=== PATIENT | female | born 1945 | race Caucasian/White ===

== ENCOUNTER → 2024-09-19 10:07 | Outpatient (REF) | payer OTHER, SELFPAY | LOC: RCS 10:07 | PROVIDERS: ATTENDING PHYSICIAN Internal Medicine Cardiovascular Disease; FAMILY PHYSICIAN Family Medicine | DX: I34.0 Nonrheumatic mitral (valve) insufficiency (principal); I70.0 Atherosclerosis of aorta; I10 Essential (primary) hypertension | CPT/HCPCS: 93306 ==

== ENCOUNTER → 2024-12-05 08:20 | Outpatient (REF) | payer OTHER, SELFPAY | LOC: EMG 08:20 | PROVIDERS: ATTENDING PHYSICIAN Podiatrist Foot & Ankle Surgery; FAMILY PHYSICIAN Family Medicine | DX: G62.9 Polyneuropathy, unspecified (principal); E11.40 Type 2 diabetes mellitus with diabetic neuropathy, unspecified | CPT/HCPCS: 95886; 95911 ==

== ENCOUNTER 2025-01-25 06:14 | Day surgery (SDC) | payer OTHER, SELFPAY ==
[2025-01-25 08:28] LABS: Glucose - Point of Care 129 mg/dl (70-99)
== END 2025-01-25 10:46 | disposition home or self-care (01) ==
LOC: GI 06:14
PROVIDERS: ATTENDING PHYSICIAN Specialist
DX: Z12.11 Encounter for screening for malignant neoplasm of colon (principal); K57.30 Diverticulosis of large intestine without perforation or abscess without bleeding; R13.10 Dysphagia, unspecified; K22.2 Esophageal obstruction; Z86.0101 Personal history of adenomatous and serrated colon polyps
CPT/HCPCS: 43249; G0105; 82962

== ENCOUNTER 2025-03-20 23:05 | Emergency (ER) | payer OTHER, SELFPAY ==
[2025-03-20 23:08] VITALS: BP 128/99
--- NOTE | 2025-03-20 23:39 | ED.GENMED ---
History of Present Illness
<Mila Garcia MD, Resident - Last Filed: 03/21/25 00:32>
General
Chief Complaint: Eye Problems
Source: patient
Exam Limitations: none
Time Seen by Provider: 03/20/25 23:27
Nursing documentation reviewed up to this point in time: agreed with
History of Present Illness
History of Present Illness:
80yo F who presents with contact lens stuck in her R eye.
States that she was unable to get the contact out of her R eye today. It has only been in for 1 day. She has been using contacts for 30yrs without having this issue before. She is feeling pain in the center area of the R eye. States that they are
colored contacts with a darker iris color. Tried putting in lubricating eye drops, rinsing eye, rubbing eye - has not been able to remove it.
Past History
<Mila Garcia MD, Resident - Last Filed: 03/21/25 00:32>
Past History
ED Past Medical History: Hypercholesterolemia; Negative CAD
ED Past Surgical History: Appendectomy and (x 2. Lap)
Social History
Tobacco: Non-smoker
Personal:
Living: with family
Employment: Retired
Review of Systems
<Mila Garcia MD, Resident - Last Filed: 03/21/25 00:32>
Review of Systems
All Other Systems: ROS reviewed and negative except as documented in HPI and ROS
Constitutional: Reports other (pain in L eye )
EENT: Reports no symptoms
Respiratory: Reports no symptoms
Cardiac: Reports no symptoms
ABD/GI: Reports no symptoms
: Reports no symptoms
Musculoskeletal: Reports no symptoms
Skin: Reports no symptoms
Neurological: Reports no symptoms
Endocrine: Reports no symptoms
Hematologic/Lymphatic: Reports no symptoms
Psychiatric: Reports no symptoms
Phy Exam
<Mila Garcia MD, Resident - Last Filed: 03/21/25 00:32>
General Physical Exam
General Presentation: mild distress
General age: appears stated age
General Skin: warm and dry
General Habitus: normal
General Mental: alert
General Hydration: appears well hydrated
Eye Exam
Eye Exam: PERRL, EOMI and other (L eye slightly irritated but without conjunctival injection, periorbital edema/erythema, discharge; no contact immediately visible )
Cardiovascular Exam
Cardiovascular Exam: regular rate/rhythm and no edema
Pulmonary Exam
Pulmonary Exam: no respiratory distress
Gastrointestinal Exam
Gastrointestinal Exam: non distended
Neurological Exam
Neurological Exam: alert
Musculoskeletal Exam
Musculoskeletal Exam: full ROM
Skin Exam
Skin Exam: normal color and warm/dry
Psychiatric Exam
Psychiatric Exam: anxious
Course
<Mila Garcia MD, Resident - Last Filed: 03/21/25 00:32>
Orders/Labs/Results
Orders:
Orders
03/20/25 23:39
Visual Acuity- Treatment ONCE
03/21/25 00:43
Tetracaine HCl [Tetracaine 0.5% Ophthalmic Solution] 1 drop .ROUTE .STK-MED ONE
Vital Signs
Initial and Last Documented VS:
Initial Vital Signs
Temp Pulse Resp BP Pulse Ox
97.8 F 92 16 128/99 99
03/20/25 23:08 03/20/25 23:08 03/20/25 23:08 03/20/25 23:08 03/20/25 23:08
Last Documented Vital Signs
Temp Pulse Resp BP Pulse Ox
97.8 F 84 16 146/89 99
03/20/25 23:08 03/21/25 00:40 03/20/25 23:08 03/21/25 00:40 03/20/25 23:43
<Christiano Mckeon, DO - Last Filed: 03/21/25 01:27>
Orders/Labs/Results
Orders:
Orders
03/20/25 23:39
Visual Acuity- Treatment ONCE
03/21/25 00:43
Tetracaine HCl [Tetracaine 0.5% Ophthalmic Solution] 1 drop .ROUTE .STK-MED ONE
Vital Signs
Initial and Last Documented VS:
Initial Vital Signs
Temp Pulse Resp BP Pulse Ox
97.8 F 92 16 128/99 99
03/20/25 23:08 03/20/25 23:08 03/20/25 23:08 03/20/25 23:08 03/20/25 23:08
Last Documented Vital Signs
Temp Pulse Resp BP Pulse Ox
97.8 F 84 16 146/89 99
03/20/25 23:08 03/21/25 00:40 03/20/25 23:08 03/21/25 00:40 03/20/25 23:43
<Mila Garcia MD, Resident - Last Filed: 03/21/25 00:32>
MDM/Problems Addressed
Differential Diagnosis Includes:
Retained contact lens in L eye
Risk of corneal abrasion w attempts to remove
MDM/Problems Addressed:
- Visual acuity test
- Will attempt removal of contact lens with tetracaine topical anesthetic
- Consider ppx topical abx
<Mila Garcia MD, Resident - Last Filed: 03/21/25 00:32>
*Pulse Oximetry
SaO2: 99
Oxygen Mode of Delivery: Room air
Patient hypoxic: not evaluated
*Critical Care Note
Total Time (30-74mins, 75-104mins- exclusive of procedures): Not Applicable
<Mila Garcia MD, Resident - Last Filed: 03/21/25 00:32>
Update Note
Update Note:
11:55pm
Visual acuity test with 20/30 in R eye and 20/40 in L eye; 20/30 both eyes
12:30am
Eye exam under tetracaine without evidence of retained contact lens. Unable to be retrieved or visualized with cotton swab manipulation.
Will discharge pt with antibiotics due to c/f corneal abrasion and with referral to follow up with ophthalmology if discomfort in R eye worsens or persists in 24hr.
ED Attending Note
<Mila Garcia MD, Resident - Last Filed: 03/21/25 00:32>
-
Portions of this chart may have been created with voice recognition software.� Occasional wrong word or��sound alike� substitutions may have occurred due to the inherent limitations of voice recognition software.
<Christiano Mckeon DO - Last Filed: 03/21/25 01:27>
ED Attending Note
Patient seen and examined by attending physician: Yes
I performed a history and physical exam of patient and discussed management with resident, I reviewed resident's note and agree with documented findings and plan of care.: Yes
ED Attending Note:
I have reviewed and agree with history treatment plan by Mila Garcia MD. My exam revealed no foreign bodies in either eye, no corneal ulcer or corneal abrasion seen. Will treat prophylactically with Ocuflox and have patient follow-up with
ophthalmology. Return precautions given.
Discharge Plan
Departure
Patient Disposition: Home (Routine Discharge)
Date of Disposition: 03/21/25
Time of Disposition: 00:21
Patient with high blood pressure during this ER visit?: No
Discharge Problem:
Foreign body sensation, right eye
Prescriptions:
New
ofloxacin 0.3 % drops
2 drp ophthalmic (eye) QID 5 Days Qty: 5 0RF
Rx Instructions:
Instill 1 to 2 drops in the Right eye 4 times daily for 5 days
Referrals:
Christiano Sewell MD [Active, Ophthalmology] - Follow up in 2-3 days
Referral Note: retained contact lens in R eye
Lorenzo Hawkins, DO [Family Provider, [facility]]
Activity Restrictions/Additional Instructions:
You were seen in the ED for concern for retained contact lens in the right eye. We did not find a contact lens on exam of the eye.
However, you may have a corneal abrasion from rubbing & attempts to remove the lens, so we are prescribing you an antibiotic eye drop. Please use 2 drops in the right eye four times daily for 5 days.
If you continue to have pain in the right eye and the sensation of something being stuck in the eye, please follow up with an [facility] [employer] consultant. We have provided the referral information for Dr. Christiano Sewell, who will be able to see you.
Interventions
Interventions:
*Risk Screen - Suicide Last Done: 03/20/25 23:08
*General Assessment Last Done: 03/20/25 23:56
*Neglect/Abuse Screening Last Done: 03/20/25 23:08
*ED- Fall Risk Assessment Last Done: 03/20/25 23:08
*ED COVID-19 Vaccine History Last Done: 03/20/25 23:08
*ED Influenza Vaccine History Last Done: 03/20/25 23:08
*Nursing Disposition Last Done: 03/21/25 00:39
Discharge Date and Time
Discharge Date/Time: 03/21/25 00:48
Print Language: FRISIAN
[2025-03-21 00:40] VITALS: BP 146/89
== END 2025-03-21 00:48 | disposition home or self-care (01) ==
LOC: EMR 23:05
PROVIDERS: EMERGENCY PHYSICIAN Emergency Medicine; FAMILY PHYSICIAN Family Medicine
DX: H57.8A1 Foreign body sensation, right eye (principal); E78.00 Pure hypercholesterolemia, unspecified
CPT/HCPCS: 99283